=== PATIENT | male | born 1990 | race Caucasian/White ===

== ENCOUNTER 2017-03-20 23:36 | Emergency (ER) | payer SELFPAY ==
[2017-03-20 23:55] VITALS: RESP 18
--- NOTE | 2017-03-21 00:38 | ED PDOC ---
Arrival/HPI - General Chief Complaint: GI Problem Time Seen by Provider: 03/21/17 00:29 Historian: Patient - History of Present Illness Narrative History of Present Illness (Text): 03/21/17 00:36 Wiley Moe is a 26 year old male, with a history of G-6-PD deficiency, presents to the emergency department complaining of 2 day duration of nausea and vomiting. Patient also complains of posterior head pain, and generalized fatigue. Denies any fever, chills, dizziness, chest pain, shortness of breath, urinary symptoms, or any other complaints at this time. Time/Duration: Other (2 days ) Symptom Onset: Gradual Symptom Course: Unchanged Severity Level: Mild Activities at Onset: Light Past Medical History - Provider Review Nursing Documentation Reviewed: Yes - Psychiatric Hx Substance Use: No Family/Social History - Physician Review Nursing Documentation Reviewed: Yes Family/Social History: No Known Family HX Smoking Status: no Hx Alcohol Use: No Hx Substance Use: No Allergies/Home Meds Allergies/Adverse Reactions: Allergies Penicillins Allergy (Verified 03/20/17 23:55) RASH Review of Systems - Physician Review All systems were reviewed & negative as marked: Yes - Review of Systems Constitutional: Fatigue. absent: Fevers Respiratory: Normal. absent: SOB, Cough, Sputum Cardiovascular: absent: Chest Pain, Palpitations Gastrointestinal: Nausea, Vomiting. absent: Diarrhea Genitourinary Male: Normal Musculoskeletal: Normal Neurological: Headache. absent: Dizziness Physical Exam Vital Signs Reviewed: Yes Vital Signs Temp Pulse Resp BP Pulse Ox 03/21/17 04:26 53 L 18 112/74 100 03/21/17 03:35 98.0 F 53 L 18 116/67 100 03/20/17 23:51 98.8 F 72 18 120/83 98 Temperature: Afebrile Blood Pressure: Normal Pulse: Regular Respiratory Rate: Normal Appearance: Positive for: Well-Appearing, Non-Toxic, Comfortable Pain Distress: None Mental Status: Positive for: Alert and Oriented X 3 - Systems Exam Head: Present: Atraumatic, Normocephalic Pupils: Present: PERRL Conjunctiva: Present: Normal Mouth: Present: Moist Mucous Membranes Respiratory/Chest: Present: Clear to Auscultation, Good Air Exchange. No: Respiratory Distress, Accessory Muscle Use Cardiovascular: Present: Regular Rate and Rhythm, Normal S1, S2. No: Murmurs Abdomen: Present: Normal Bowel Sounds. No: Tenderness, Distention, Peritoneal Signs Upper Extremity: Present: Normal Inspection. No: Cyanosis, Edema Lower Extremity: Present: Normal Inspection. No: Edema Neurological: Present: GCS=15, CN II-XII Intact, Speech Normal, Motor Func Grossly Intact, Normal Sensory Function Skin: Present: Warm, Dry, Normal Color. No: Rashes Psychiatric: Present: Alert, Oriented x 3, Normal Insight, Normal Concentration Medical Decision Making ED Course and Treatment: 03/21/17 00:40 Impression: A 26 year old male who presents to the emergency department complaining of vomiting and nausea for 2 days. Also notes of flank pain and posterior head pain. Plan: -- CT Abd pelvis -- EKG -- Labs -- IV fluids -- Zofran -- Urinalysis -- Reassess and disposition Progress Notes: 03/21/17 02:15 EXAM: CT Abdomen and Pelvis Without Intravenous Contrast FINDINGS: Limitations: Lack of intravenous contrast. Motion artifact - mild. Lower thorax: No acute findings. ABDOMEN: Liver: Unremarkable. Gallbladder and bile ducts: No calcified stones. No ductal dilation. Pancreas: Unremarkable. No ductal dilation. Spleen: No splenomegaly. Adrenals: No mass. Kidneys and ureters: No renal calculi. No hydronephrosis. Stomach and bowel: Apparent mild mural/fold thickening of several jejunal loops. No associated inflammatory stranding. No obstruction. Appendix: No definite findings to suggest acute appendicitis. PELVIS: Bladder: Unremarkable. No stones. Reproductive: Unremarkable as visualized. ABDOMEN and PELVIS: Intraperitoneal space: No significant fluid collection. No free air. Bones/joints: No acute fracture. Soft tissues: Unremarkable. Vasculature: Unremarkable. No aneurysm. Lymph nodes: No pathologically enlarged lymph nodes. IMPRESSION: 1. Possible mild enteritis. Clinical correlation is needed. 2. Incidental/non-acute findings are described above. Dictated and Authenticated by: David Kaminski MD 03/21/17 04:26 On re-evaluation, patient feels better and is in no acute distress. I have discussed the results and plan with the patient, who expresses understanding. Patient in agreement with plan to be discharged home. Patient is stable for discharge. Patient was instructed to follow up with physician or return if symptoms worsen or new concerning symptoms arise. - Lab Interpretations Lab Results: 03/21/17 00:40 03/21/17 00:40 Lab Results 03/21/17 00:40: Urine Color Yellow, Urine Appearance Clear, Urine pH 6.5, Ur Specific [place] 1.015, Urine Protein Negative, Urine Glucose (UA) Negative, Urine Ketones Negative, Urine Blood Negative, Urine Nitrate Negative, Urine Bilirubin Negative, Urine Urobilinogen 1.0 H, Ur Leukocyte Esterase Negative 03/21/17 00:40: Sodium 139, Potassium 3.2 L, Chloride 102, Carbon Dioxide 26, Anion Gap 14, BUN 8, Creatinine 0.8, Est GFR ( Amer) > 60, Est GFR (Non- Af Amer) > 60, Random Glucose 82, Calcium 9.4, Total Bilirubin 0.9, AST 24, ALT 29, Alkaline Phosphatase 57, Troponin I < 0.01, Total Protein 7.6, Albumin 4.5, Globulin 3.1, Albumin/Globulin Ratio 1.5 03/21/17 00:40: WBC 6.1, RBC 4.44, Hgb 12.4 L, Hct 37.6 L, MCV 84.7, MCH 27.9, MCHC 33.0, RDW 12.7, Plt Count 199, MPV 10.0, Gran % 46.3 L, Lymph % (Auto) 41.1 H, [place] % (Auto) 8.9 H, Eos % (Auto) 3.4, Baso % (Auto) 0.3, Gran # 2.82, Lymph # 2.5, [place] # 0.5, Eos # 0.2, Baso # 0.02 I have reviewed the lab results: Yes - RAD Interpretation Radiology Orders: 03/21/17 00:36 ABD & PELVIS W/O PO OR IV CONT [CT] Stat Transportation Consultant: Radiologist - Medication Orders Current Medication Orders: Discontinued Medications Sodium Chloride (Sodium Chloride 0.9%) 1,000 mls @ 80 mls/hr IV .[id number] Last Admin: 03/21/17 02:49 Dose: 80 mls/hr Ondansetron HCl (Zofran Inj) 4 mg IVP STAT STA Stop: 03/21/17 00:37 Last Admin: 03/21/17 00:53 Dose: 4 mg - Scribe Statement The provider has reviewed the documentation as recorded by the Dc Gee Provider Attestation: Provider Scribe Attestation: All medical record entries made by the Scribe were at my direction and personally dictated by me. I have reviewed the chart and agree that the record accurately reflects my personal performance of the history, physical exam, medical decision making, and the department course for this patient. I have also personally directed, reviewed, and agree with the discharge instructions and disposition. Disposition/Present on Arrival - Present on Arrival Any Indicators Present on Arrival: No History of DVT/PE: No History of Uncontrolled Diabetes: No Urinary Catheter: No History of Decub. Ulcer: No History Surgical Site Infection Following: None - Disposition Have Diagnosis and Disposition been Completed?: Yes Diagnosis: Enteritis Disposition: HOME/ ROUTINE Disposition Time: 02:50 Condition: GOOD Discharge Instructions (ExitCare): Enteritis (ED) Prescriptions: Ondansetron [Zofran Odt] 8 mg PO TID PRN #10 odt PRN Reason: Nausea/Vomiting
[2017-03-21] MEDS: Sodium Chloride 0.9% 1,000 ML IV SCH ×2 (00:53→02:49)
[2017-03-21 00:59] LABS: BASO # 0.02 K/mm3 (0.0-2.0); BASO % 0.3 % (0.0-3.0); EOS # 0.2 (0.0-0.7); EOS % 3.4 % (1.5-5.0); GRAN # 2.82 (1.4-6.5); GRAN % 46.3 % (50.0-68.0); HEMOGLOBIN 12.4 gm/dL (14.0-18.0); LYMPH # 2.5 (1.2-3.4); LYMPH % 41.1 % (22.0-35.0); MEAN CELL VOLUME 84.7 fL (80.0-105.0); MEAN CORPUSCULAR HEMOGLOBIN 27.9 pg (25.0-35.0); MONO # 0.5 (0.1-0.6); MONO % 8.9 % (1.0-6.0); PLATELET COUNT 199 10^3/uL (120.0-450.0); RBC 4.44 10^6/uL (3.5-6.1); RED CELL DISTRIBUTION WIDTH 12.7 % (11.5-14.5); WHITE BLOOD COUNT 6.1 10^3/ul (4.5-11.0)
[2017-03-21 01:04] LABS: ALB/GLOB RATIO 1.5 (1.1-1.8); ALBUMIN 4.5 g/dL (3.0-4.8); ALT/SGPT 29 U/L (7-56); AST/SGOT 24 U/L (15-59); BLOOD UREA NITROGEN 8 mg/dL (7-21); CALCIUM 9.4 mg/dL (8.4-10.5); GFR AFRICAN-AMERICAN > 60; GFR NON-AFRICAN AMERICAN > 60
[2017-03-21 01:31] LABS: TROPONIN I < 0.01 ng/mL
[2017-03-21 02:10] LABS: PH,URINE 6.5 (4.7-8.0); URINE BILIRUBIN NEGATIVE (NEGATIVE); URINE BLOOD NEGATIVE (NEGATIVE); URINE GLUCOSE (UA) NEGATIVE (NEGATIVE); URINE LEUKOCYTE ESTERASE NEGATIVE Leu/uL (NEGATIVE); URINE NITRATE NEGATIVE (NEGATIVE); URINE PROTEIN NEGATIVE mg/dL (<30 mg/dL)
[2017-03-21 02:11] LABS: URINE APPEARANCE CLEAR (CLEAR); URINE COLOR YELLOW (YELLOW)
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
[2017-03-21 03:37] VITALS: PULSE 53; TEMP 98; O2SAT 100
[2017-03-21 04:27] VITALS: BP 112/74
== END 2017-03-21 04:25 | disposition home or self-care (01) ==
LOC: ED 23:36
DX: K52.9 Noninfective gastroenteritis and colitis, unspecified (principal)
CPT/HCPCS: 74176; 80053; 81003; 84484; 85025; 96361; 96374; 99284; J2405; J7040

== ENCOUNTER 2017-04-07 01:46 | Emergency (ER) | payer SELFPAY ==
[2017-04-07 01:48] VITALS: BMI 17.1
[2017-04-07 01:55] VITALS: RESP 18; TEMP 98.1
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
[2017-04-07 06:58] VITALS: BP 121/63; PULSE 82; O2SAT 97
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
== END 2017-04-07 06:59 | disposition home or self-care (01) ==
LOC: ED 01:46
DX: R51 Headache (principal)
CPT/HCPCS: 70450; 71020; 96372; 99283; J1885

== ENCOUNTER 2017-10-22 03:39 | Emergency (ER) | payer OTHER ==
[2017-10-22 04:05] VITALS: BMI 18.6
[2017-10-22 04:18] VITALS: BP 113/75; PULSE 81; RESP 16; TEMP 97.3; O2SAT 100
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
[2017-10-22 05:06] LABS: BASO # 0.03 K/mm3 (0.0-2.0); BASO % 0.5 % (0.0-3.0); EOS # 0.4 (0.0-0.7); EOS % 6.4 % (1.5-5.0); GRAN # 2.97 (1.4-6.5); GRAN % 49.2 % (50.0-68.0); HEMOGLOBIN 12.8 g/dL (14.0-18.0); LYMPH # 2.2 (1.2-3.4); MEAN CELL VOLUME 86.4 fl (80.0-105.0); MEAN CORPUSCULAR HEMOGLOBIN 27.6 pg (25.0-35.0); MEAN CORPUSCULAR HGB CONC 31.9 g/dl (31.0-37.0); MEAN PLATELET VOLUME 10.6 fl (7.0-11.0); MONO # 0.4 (0.1-0.6); MONO % 6.9 % (1.0-6.0); RBC 4.64 10^6/uL (3.5-6.1); RED CELL DISTRIBUTION WIDTH 13.4 % (11.5-14.5); WHITE BLOOD COUNT 6.1 10^3/ul (4.5-11.0)
[2017-10-22 05:10] LABS: ALB/GLOB RATIO 1.4 (1.1-1.8); ALBUMIN 4.4 g/dL (3.0-4.8); ALT/SGPT 21 U/L (7-56); AST/SGOT 31 U/L (17-59); BILIRUBIN,DIRECT 0.3 mg/dL (0.0-0.4); BLOOD UREA NITROGEN 13 mg/dL (7-21); CALCIUM 9.5 mg/dL (8.4-10.5); GFR AFRICAN-AMERICAN > 60; GFR NON-AFRICAN AMERICAN > 60; MAGNESIUM 2.3 mg/dL (1.7-2.2)
--- NOTE | 2017-10-22 21:35 | CARD ---
APPROVED REPORT EKG Measurement Heart [id number] <Conclusion> Normal sinus rhythm Biatrial enlargement Abnormal ECG
== END 2017-10-22 05:37 | disposition home or self-care (01) ==
LOC: ED 03:39
DX: K29.20 Alcoholic gastritis without bleeding (principal); D55.0 Anemia due to glucose-6-phosphate dehydrogenase [G6PD] deficiency

== ENCOUNTER 2017-11-27 17:11 | Emergency (ER) | payer OTHER ==
[2017-11-27 17:25] VITALS: BMI 17.4
[2017-11-27 17:27] VITALS: RESP 18; TEMP 98.5
--- NOTE | 2017-11-27 18:01 | ED PDOC ---
Arrival/HPI - General Chief Complaint: Abdominal Pain Time Seen by Provider: 11/27/17 17:44 Historian: Patient - History of Present Illness Narrative History of Present Illness (Text): 11/27/17 17:54 Pt is a 27 year old male with G6PD def. and gastritis, who presents to the ED with coughing and vomiting blood 3 times today since this morning. Pt says that he started to cough up a streaks of blood and had associated epigastric pain; to relieve this pain, he forced himself to throw up which produced approx 3 cups of bright red blood. He has not eaten since this morning but has been able to drink water. Admits to eating a lot of spicy foods and alcohol on occasion despite being told not to previously. Does not have a PMD as he is an immigrant and unemployed. Denies chest pain, shortness of breath, back pain, ZHAO, fever, chills, rectal bleeding or change in stool, or any other complaints. Time/Duration: 4-6 hours Symptom Onset: Sudden Symptom Course: Unchanged Quality: Pressure Severity Level: 1 Activities at Onset: Rest Context: Work Past Medical History - Provider Review Nursing Documentation Reviewed: Yes - Travel History Have you recently traveled outside [place] w/in the past 3 mons?: No - Infectious Disease Hx of Infectious Diseases: None - Cardiac Hx Cardiac Disorders: No - Pulmonary Hx Respiratory Disorders: No - Neurological Hx Neurological Disorder: No - HEENT Hx HEENT Disorder: No - Renal Hx Renal Disorder: No - Endocrine/Metabolic Hx Endocrine Disorders: No - Hematological/Oncological Other/Comment: g6PD deficiency - Integumentary Hx Dermatological Disorder: No - Musculoskeletal/Rheumatological Hx Musculoskeletal Disorders: No - Gastrointestinal Hx Gastrointestinal Disorders: No - Genitourinary/Gynecological Hx Genitourinary Disorders: No - Psychiatric Hx Psychophysiologic Disorder: No Hx Substance Use: No - Anesthesia Hx Anesthesia: Yes Family/Social History - Physician Review Nursing Documentation Reviewed: Yes Family/Social History: Unknown Family HX Smoking Status: Never Smoked Hx Alcohol Use: No Hx Substance Use: No Allergies/Home Meds Allergies/Adverse Reactions: Allergies Penicillins Allergy (Verified 11/27/17 17:25) RASH Review of Systems - Review of Systems Constitutional: Normal Eyes: Normal ENT: Normal Respiratory: Normal, Cough (w blood) Cardiovascular: Normal Gastrointestinal: Abdominal Pain (epigastric), Vomiting (3 cups earlier today) Genitourinary Male: Normal Musculoskeletal: Normal Skin: Normal Neurological: Normal Endocrine: Normal Hemo/Lymphatic: Normal Psychiatric: Normal Physical Exam Vital Signs Reviewed: Yes Vital Signs Temp Pulse Resp BP Pulse Ox 11/27/17 22:49 75 18 118/80 98 11/27/17 17:27 98.5 F 76 18 116/78 100 11/27/17 17:26 98.5 F 73 18 116/78 98 Temperature: Afebrile Blood Pressure: Normal Pulse: Regular Respiratory Rate: Normal Appearance: Positive for: Well-Appearing, Non-Toxic, Comfortable Pain Distress: None Mental Status: Positive for: Alert and Oriented X 3 - Systems Exam Head: Present: Atraumatic, Normocephalic Pupils: Present: PERRL Extroacular Muscles: Present: EOMI Conjunctiva: Present: Normal Mouth: Present: Moist Mucous Membranes Neck: Present: Normal Range of Motion Respiratory/Chest: Present: Clear to Auscultation, Good Air Exchange. No: Respiratory Distress, Accessory Muscle Use Cardiovascular: Present: Regular Rate and Rhythm, Normal S1, S2. No: Murmurs Abdomen: Present: Normal Bowel Sounds. No: Tenderness, Distention, Peritoneal Signs, Rebound, Guarding, McBurney's Point Tender, Rovsing's Sign Present, Hernias, Feeding Tubes, Ostomy Tubes, Mass/Organomegaly, Scars, Other Back: Present: Normal Inspection Upper Extremity: Present: Normal Inspection. No: Cyanosis, Edema Lower Extremity: Present: Normal Inspection. No: Edema Neurological: Present: GCS=15, CN II-XII Intact, Speech Normal Skin: Present: Warm, Dry, Normal Color. No: Rashes Psychiatric: Present: Alert, Oriented x 3, Normal Insight, Normal Concentration Medical Decision Making ED Course and Treatment: 11/27/17 18:01 Impression Pt is a 27 year old male with G6PD def. and gastritis, who presents to the ed with coughing and vomiting up blood 3 times today since tis morning. On exam, no significant findings Ddx: Acute abdomen, pancreatitis, obstruction Plan GI work up CT w IV and PO contrast Progress note Labs WNL CT abd and pelvis discussed findings w pt; advised to have endoscopy down with GI specialist dispo home with Brisa for gastritis VSS on DC - Lab Interpretations Lab Results: 11/27/17 18:35 11/27/17 18:35 Lab Results 11/27/17 18:35: Urine Color Yellow, Urine Appearance Clear, Urine pH 6.0, Ur Specific [place] 1.025, Urine Protein Negative, Urine Glucose (UA) Negative, Urine Ketones Negative, Urine Blood Negative, Urine Nitrate Negative, Urine Bilirubin Negative, Urine Urobilinogen 0.2, Ur Leukocyte Esterase Negative 11/27/17 18:35: Sodium 140, Potassium 4.1, Chloride 102, Carbon Dioxide 26, Anion Gap 16, BUN 11, Creatinine 0.8, Est GFR ( Amer) > 60, Est GFR (Non- Af Amer) > 60, Random Glucose 77, Calcium 10.0, Total Bilirubin 0.9, AST 21, ALT 24, Alkaline Phosphatase 48, Lactate Dehydrogenase 285 L, Total Creatine Kinase 61, Troponin I < 0.01, Total Protein 7.9, Albumin 4.6, Globulin 3.3, Albumin/Globulin Ratio 1.4, Amylase 61, Lipase 26 11/27/17 18:35: PT 12.1, INR 1.06, APTT 29.4 11/27/17 18:35: WBC 4.5 D, RBC 4.98, Hgb 13.7 L, Hct 42.6, MCV 85.5, MCH 27.5, MCHC 32.2, RDW 13.6, Plt Count 222, MPV 10.5, Gran % 38.2 L, Lymph % (Auto) 44.6 H, Dickinson % (Auto) 8.9 H, Eos % (Auto) 7.6 H, Baso % (Auto) 0.7, Gran # 1.71 , Lymph # (Auto) 2.0, Dickinson # (Auto) 0.4, Eos # (Auto) 0.3, Baso # (Auto) 0.03 - RAD Interpretation Narrative RAD Interpretations (Text): 11/27/17 22:25 EXAM: CT Abdomen and Pelvis With Intravenous Contrast CLINICAL HISTORY: 27 years old, male; Pain; Abdominal pain; Generalized; Additional info: Hematemesis TECHNIQUE: Axial computed tomography images of the abdomen and pelvis with intravenous contrast. All CT scans at this facility use one or more dose reduction techniques, viz.: automated exposure control; ma/kV adjustment per patient size (including targeted exams where dose is matched to indication; i.e. head); or iterative reconstruction technique. Coronal and sagittal reformatted images were created and reviewed. CONTRAST: 100 mL of OMNI 350 administered intravenously. COMPARISON: CT - ABD PELVIS W/O PO OR IV CONT 2017-03-21 01:40 FINDINGS: Lower thorax: No acute findings. ABDOMEN: Liver: Unremarkable. No mass. Gallbladder and bile ducts: No calcified stones. No ductal dilation. Pancreas: No ductal dilation. No mass. Spleen: No splenomegaly. Adrenals: No mass. Kidneys and ureters: No mass. No hydronephrosis. Stomach and bowel: No definite mural thickening. No obstruction. Appendix: Normal caliber. No inflammation. PELVIS: Bladder: Borderline bladder wall thickening, 4-5 mm. Incomplete distention, limiting evaluation. Reproductive: Apparent mildly prominent enhancement of prostate gland and seminal vesicles. ABDOMEN and PELVIS: Intraperitoneal space: Trace free fluid within pelvis. No free air. Bones/joints: Schmorl's nodes at few levels. No acute fracture. Soft tissues: Unremarkable. Vasculature: Unremarkable. No aneurysm. Lymph nodes: No pathologically enlarged lymph nodes. IMPRESSION: 1. Mild cystitis vs underdistention. Correlate with urinalysis. 2. Apparent mildly prominent enhancement of prostate gland and seminal vesicles. Clinical correlation is needed. 3. Incidental/non-acute findings are described above. Thank you for allowing us to participate in the care of your patient Radiology Orders: 11/27/17 18:04 CHEST PORTABLE [RAD] Stat 11/27/17 18:05 ABD PELVIS PO & IV CONTRAST [CT] Stat - EKG Interpretation Interpreted by ED Physician: Yes (Sinus donna with a Rate 50) - Medication Orders Current Medication Orders: Discontinued Medications Famotidine (Pepcid) 20 mg IVP STAT STA Stop: 11/27/17 18:05 Last Admin: 11/27/17 18:26 Dose: 20 mg IVP Administration Document 11/27/17 18:26 OCS (Rec: 11/27/17 18:26 OCS [id number]) Charges for Administration # of IVP Administrations 1 Pantoprazole Sodium (Protonix Inj) 40 mg IVP STAT STA Stop: 11/27/17 18:05 Last Admin: 11/27/17 18:26 Dose: 40 mg IVP Administration Document 11/27/17 18:26 OCS (Rec: 11/27/17 18:26 OCS [id number]) Charges for Administration # of IVP Administrations 1 Disposition/Present on Arrival - Present on Arrival Any Indicators Present on Arrival: Yes History of DVT/PE: No History of Uncontrolled Diabetes: No Urinary Catheter: No History of Decub. Ulcer: No History Surgical Site Infection Following: None - Disposition Have Diagnosis and Disposition been Completed?: Yes Diagnosis: Gastritis Disposition: HOME/ ROUTINE Disposition Time: 22:29 Patient Plan: Discharge Condition: STABLE Discharge Instructions (ExitCare): Gastritis (DC) Additional Instructions: It is recommended that you follow up with a GI specialist to have an endoscopic exam top rule out an ulcer. If you have worsening of symptoms, return to the ED for evaluation. All the best in your care Prescriptions: Omeprazole 20 mg PO DAILY #10 capsule. Referrals: [facility], [Non-Staff] - Follow up with primary Rios Gu DO [Staff Provider] - Follow up with primary Forms: [facility] (Greek), WORK NOTE
[2017-11-27] MEDS ORDERED: Iohexol 240 (50 ml) ONE (18:13)
[2017-11-27 19:03] LABS: URINE BILIRUBIN NEGATIVE (NEGATIVE); URINE BLOOD NEGATIVE (NEGATIVE); URINE GLUCOSE (UA) NEGATIVE (NEGATIVE); URINE LEUKOCYTE ESTERASE NEGATIVE Leu/uL (NEGATIVE); URINE PROTEIN NEGATIVE mg/dL (<30 mg/dL); URINE UROBILINOGEN 0.2 E.U./dL (<1 E.U./dL)
[2017-11-27 19:06] LABS: BASO # 0.03 K/mm3 (0.0-2.0); BASO % 0.7 % (0.0-3.0); EOS # 0.3 (0.0-0.7); EOS % 7.6 % (1.5-5.0); GRAN # 1.71 (1.4-6.5); GRAN % 38.2 % (50.0-68.0); HEMOGLOBIN 13.7 g/dL (14.0-18.0); LYMPH % 44.6 % (22.0-35.0); MEAN CELL VOLUME 85.5 fl (80.0-105.0); MEAN CORPUSCULAR HEMOGLOBIN 27.5 pg (25.0-35.0); MEAN CORPUSCULAR HGB CONC 32.2 g/dl (31.0-37.0); MEAN PLATELET VOLUME 10.5 fl (7.0-11.0); MONO # 0.4 (0.1-0.6); MONO % 8.9 % (1.0-6.0); RBC 4.98 10^6/uL (3.5-6.1); RED CELL DISTRIBUTION WIDTH 13.6 % (11.5-14.5); URINE APPEARANCE CLEAR (CLEAR); URINE COLOR YELLOW (YELLOW); WHITE BLOOD COUNT 4.5 10^3/ul (4.5-11.0)
[2017-11-27 19:11] LABS: ALB/GLOB RATIO 1.4 (1.1-1.8); ALBUMIN 4.6 g/dL (3.0-4.8); ALT/SGPT 24 U/L (7-56); AMYLASE 61 U/L (35-125); AST/SGOT 21 U/L (17-59); BLOOD UREA NITROGEN 11 mg/dL (7-21); GFR AFRICAN-AMERICAN > 60; GFR NON-AFRICAN AMERICAN > 60; INR 1.06 (0.93-1.08); LIPASE 26 U/L (23-300); PARTIAL THROMBOPLASTIN TIME 29.4 Seconds (25.1-36.5); PROTHROMBIN TIME 12.1 SECONDS (9.4-12.5)
[2017-11-27 19:22] LABS: TROPONIN I < 0.01 ng/mL
--- NOTE | 2017-11-27 22:08 | CT ---
EXAM: CT Abdomen and Pelvis With Intravenous Contrast CLINICAL HISTORY: 27 years old, male; Pain; Abdominal pain; Generalized; Additional info: Hematemesis TECHNIQUE: Axial computed tomography images of the abdomen and pelvis with intravenous contrast. All CT scans at this facility use one or more dose reduction techniques, viz.: automated exposure control; ma/kV adjustment per patient size (including targeted exams where dose is matched to indication; i.e. head); or iterative reconstruction technique. Coronal and sagittal reformatted images were created and reviewed. CONTRAST: 100 mL of OMNI 350 administered intravenously. COMPARISON: CT - ABD PELVIS W/O PO OR IV CONT 2017-03-21 01:40 FINDINGS: Lower thorax: No acute findings. ABDOMEN: Liver: Unremarkable. No mass. Gallbladder and bile ducts: No calcified stones. No ductal dilation. Pancreas: No ductal dilation. No mass. Spleen: No splenomegaly. Adrenals: No mass. Kidneys and ureters: No mass. No hydronephrosis. Stomach and bowel: No definite mural thickening. No obstruction. Appendix: Normal caliber. No inflammation. PELVIS: Bladder: Borderline bladder wall thickening, 4-5 mm. Incomplete distention, limiting evaluation. Reproductive: Apparent mildly prominent enhancement of prostate gland and seminal vesicles. ABDOMEN and PELVIS: Intraperitoneal space: Trace free fluid within pelvis. No free air. Bones/joints: Schmorl's nodes at few levels. No acute fracture. Soft tissues: Unremarkable. Vasculature: Unremarkable. No aneurysm. Lymph nodes: No pathologically enlarged lymph nodes. IMPRESSION: 1. Mild cystitis vs underdistention. Correlate with urinalysis. 2. Apparent mildly prominent enhancement of prostate gland and seminal vesicles. Clinical correlation is needed. 3. Incidental/non-acute findings are described above.
[2017-11-27 22:50] VITALS: BP 118/80; PULSE 75; O2SAT 98
--- NOTE | 2017-11-28 09:21 | RAD ---
HISTORY: hemetemesis COMPARISON: 04/07/2017 FINDINGS: LUNGS: No active pulmonary disease. PLEURA: No significant pleural effusion identified, no pneumothorax apparent. CARDIOVASCULAR: Normal. OSSEOUS STRUCTURES: No significant abnormalities. VISUALIZED UPPER ABDOMEN: Normal. OTHER FINDINGS: None. IMPRESSION: No active disease.
--- NOTE | 2017-11-28 19:41 | CARD ---
APPROVED REPORT EKG Measurement Heart [id number] <Conclusion> Sinus bradycardia Early repolarization Otherwise normal ECG
== END 2017-11-27 22:50 | disposition home or self-care (01) ==
LOC: ED 17:11
DX: K29.70 Gastritis, unspecified, without bleeding (principal)
CPT/HCPCS: 71045; 74177; 80053; 81003; 82150; 82550; 83615; 83690; 84484; 85025; 85610; 85730; 93005; 96374; 96375; 99283; C9113; Q9966

== ENCOUNTER 2017-12-18 12:43 | Emergency (ER) | payer OTHER ==
[2017-12-18 13:52] VITALS: BP 106/68; PULSE 76; RESP 17; TEMP 97.7; O2SAT 98; BMI 21.2
[2017-12-18] MEDS ORDERED: Pantoprazole 40 mg Susp UD PO STA (15:48)
--- NOTE | 2017-12-18 16:22 | ED PDOC ---
Arrival/HPI - General Chief Complaint: GI Problem Time Seen by Provider: 12/18/17 15:46 Historian: Patient, Partner - History of Present Illness Narrative History of Present Illness (Text): 12/18/17 16:23 Pt is a 27 year old male with G6PD def. and gastritis, who presents to the ED with continued epigastric pain and recent hematemesis while at work yesterday. Pt reports that although he was evaluated last month and told to take medication and follow up with a specialist, he chose not to as he has no insurance to cover cost of Nexium and endoscopy. He is here now in hopes of receiving an endoscopic exam and medication to relieve this pain. He does not have a PMD as he is an immigrant and unemployed. Denies chest pain, shortness of breath, back pain, ZHAO, fever, chills, rectal bleeding or change in stool, or any other complaints. Pt also reports left-side chest pain associated with epigastric pain. Denies fever, nausea, diarrhea, shortness of breath, or any other complaints. Time/Duration: > month Symptom Onset: Gradual Symptom Course: Unchanged Quality: Burning Severity Level: 8, 9 Activities at Onset: Rest, Light, Eating Context: Work Past Medical History - Provider Review Nursing Documentation Reviewed: Yes - Travel History Have you recently traveled outside [place] w/in the past 3 mons?: No - Infectious Disease Hx of Infectious Diseases: None - Cardiac Hx Cardiac Disorders: No - Pulmonary Hx Respiratory Disorders: No - Neurological Hx Neurological Disorder: No - HEENT Hx HEENT Disorder: No - Renal Hx Renal Disorder: No - Endocrine/Metabolic Hx Endocrine Disorders: No - Hematological/Oncological Other/Comment: g6PD deficiency - Integumentary Hx Dermatological Disorder: No - Musculoskeletal/Rheumatological Hx Musculoskeletal Disorders: No - Gastrointestinal Hx Gastrointestinal Disorders: Yes Hx Vomiting: Yes - Genitourinary/Gynecological Hx Genitourinary Disorders: No - Psychiatric Hx Psychophysiologic Disorder: No Hx Substance Use: No - Anesthesia Hx Anesthesia: Yes Family/Social History - Physician Review Nursing Documentation Reviewed: Yes Family/Social History: Unknown Family HX Smoking Status: Never Smoked Hx Alcohol Use: No Hx Substance Use: No Allergies/Home Meds Allergies/Adverse Reactions: Allergies peanut Allergy (Verified 12/18/17 13:48) ANAPHYLAXIS Penicillins Allergy (Verified 12/18/17 13:48) RASH Sulfa (Sulfonamide Antibiotics) Allergy (Verified 12/18/17 13:48) ANAPHYLAXIS Review of Systems - Review of Systems Constitutional: Normal Eyes: Normal ENT: Normal Respiratory: Normal Cardiovascular: Normal Gastrointestinal: Normal, Appetite Changes, Hematemesis Genitourinary Male: Normal Musculoskeletal: Normal Skin: Normal Neurological: Normal Endocrine: Normal Hemo/Lymphatic: Normal Psychiatric: Normal Physical Exam Vital Signs Reviewed: Yes Vital Signs Temp Pulse Resp BP Pulse Ox 12/18/17 13:48 97.7 F 76 17 106/68 98 Temperature: Afebrile Blood Pressure: Normal Pulse: Regular Respiratory Rate: Normal Appearance: Positive for: Well-Appearing, Non-Toxic, Comfortable Pain Distress: None Mental Status: Positive for: Alert and Oriented X 3 - Systems Exam Head: Present: Atraumatic, Normocephalic Pupils: Present: PERRL Extroacular Muscles: Present: EOMI Conjunctiva: Present: Normal Mouth: Present: Moist Mucous Membranes Neck: Present: Normal Range of Motion Respiratory/Chest: Present: Clear to Auscultation, Good Air Exchange. No: Respiratory Distress, Accessory Muscle Use Cardiovascular: Present: Regular Rate and Rhythm, Normal S1, S2. No: Murmurs Abdomen: Present: Tenderness (epigastric and left chest ), Normal Bowel Sounds. No: Distention, Peritoneal Signs, Rebound, Guarding, McBurney's Point Tender, Rovsing's Sign Present Back: Present: Normal Inspection Upper Extremity: Present: Normal Inspection. No: Cyanosis, Edema Lower Extremity: Present: Normal Inspection. No: Edema Neurological: Present: GCS=15, CN II-XII Intact, Speech Normal Skin: Present: Warm, Dry, Normal Color. No: Rashes Psychiatric: Present: Alert, Oriented x 3, Normal Insight, Normal Concentration Medical Decision Making ED Course and Treatment: 12/18/17 16:34 Impression Pt is a 27 year old male with G6PD def. and gastritis, who presents to the ED with continued epigastric pain and recent hematemesis while at work yesterday. . Plan ecg, labs ppi stat Progress Note 12/18/17 17:19 ECG: Normal Sinus rhythm; labs wnl Discussed results with pt and advised to take PPI along with Tylenol for pain Avoidance of NSAIDs and spicy food recommended F/U with GI specialist for a endoscopic exam [facility] contacted for pt and saw pt at bedside - Lab Interpretations Lab Results: 12/18/17 16:21 12/18/17 16:21 Lab Results 12/18/17 16:21: Sodium 140, Potassium 4.5, Chloride 103, Carbon Dioxide 28, Anion Gap 14, BUN 16, Creatinine 0.8, Est GFR ( Amer) > 60, Est GFR (Non- Af Amer) > 60, Random Glucose 90, Calcium 9.5, Total Bilirubin 0.4, AST 22, ALT 24, Alkaline Phosphatase 56, Total Protein 7.5, Albumin 4.5, Globulin 3.0, Albumin/Globulin Ratio 1.5 12/18/17 16:21: WBC 4.8, RBC 4.51, Hgb 12.2 L, Hct 38.8 L, MCV 86.0, MCH 27.1, MCHC 31.4, RDW 13.6, Plt Count 236, MPV 10.6 I have reviewed the lab results: Yes Interpretation: No sign. chg./baseline - EKG Interpretation Interpreted by ED Physician: Yes (NSR, Rate 65 bpm) - Medication Orders Current Medication Orders: Discontinued Medications Pantoprazole Sodium (Protonix Susp) 40 mg PO STAT STA Stop: 12/18/17 15:49 Last Admin: 12/18/17 16:15 Dose: 40 mg Disposition/Present on Arrival - Present on Arrival Any Indicators Present on Arrival: Yes History of DVT/PE: No History of Uncontrolled Diabetes: No Urinary Catheter: No History of Decub. Ulcer: No History Surgical Site Infection Following: None - Disposition Have Diagnosis and Disposition been Completed?: Yes Diagnosis: Gastritis, Noncompliance Disposition: HOME/ ROUTINE Disposition Time: 17:10 Patient Plan: Discharge Condition: GOOD Discharge Instructions (ExitCare): Peptic Ulcers (DC) Additional Instructions: Jw Jama recommend that you take the medication that was prescribed to alleviate your esophageal irritation and bleeding. You should see a grinder machine setter in the next week to have an endoscopic exam. Return to the ER if you start to vomit large amounts of blood. Prescriptions: Omeprazole 20 mg PO Q12 5 Days #10 tablet. Referrals: PCP,NO [Primary Care Provider] - Follow up with primary Forms: [facility] (Kyrgyz), WORK NOTE
[2017-12-18 16:40] LABS: HEMOGLOBIN 12.2 g/dL (14.0-18.0); MEAN CORPUSCULAR HEMOGLOBIN 27.1 pg (25.0-35.0); MEAN CORPUSCULAR HGB CONC 31.4 g/dl (31.0-37.0); MEAN PLATELET VOLUME 10.6 fl (7.0-11.0); RBC 4.51 10^6/uL (3.5-6.1); RED CELL DISTRIBUTION WIDTH 13.6 % (11.5-14.5); WHITE BLOOD COUNT 4.8 10^3/ul (4.5-11.0)
[2017-12-18 17:04] LABS: ALB/GLOB RATIO 1.5 (1.1-1.8); ALBUMIN 4.5 g/dL (3.0-4.8); ALT/SGPT 24 U/L (7-56); AST/SGOT 22 U/L (17-59); BLOOD UREA NITROGEN 16 mg/dL (7-21); CALCIUM 9.5 mg/dL (8.4-10.5); GFR AFRICAN-AMERICAN > 60; GFR NON-AFRICAN AMERICAN > 60
--- NOTE | 2017-12-18 21:21 | CARD ---
APPROVED REPORT EKG Measurement Heart [id number] <Conclusion> Normal sinus rhythm Early repolarization Normal ECG
== END 2017-12-18 19:02 | disposition home or self-care (01) ==
LOC: ED 12:43
DX: K29.70 Gastritis, unspecified, without bleeding (principal)

== ENCOUNTER 2018-11-06 13:08 | Inpatient (IN) | payer OTHER ==
[2018-11-06 13:08] VITALS: BMI 21.2
[2018-11-06] MEDS ORDERED: Alum-Mag Hydrox-Simethicone Susp (30 mL) PO STA (14:13)
[2018-11-06] MEDS ORDERED: Sodium Chloride 0.9% 1,000 ML IV STA (14:13)
--- NOTE | 2018-11-06 14:18 | ED PDOC ---
Arrival/HPI - General Chief Complaint: GI Problem Time Seen by Provider: 11/06/18 13:45 Historian: Patient - History of Present Illness Narrative History of Present Illness (Text): 11/06/18 14:14 28 year old male, whose past medical history includes G6PD def. and gastritis, who presents to the [facility] department complaining of vomiting blood for the pas year. Patient states his symptom began a year ago, then became more olimpia quently this month, and had his latest episode this morning. He notes associated sharp abdominal pain. Patient recently got insurance hence why he is coming to the emergency department for further evaluation. He denies fevers, chills, headache, dizziness, chest pain, shortness of breath, dyspnea on exertion, cough, diarrhea, back pain, neck pain, or any other complaint. Time/Duration: Other (1 year) Symptom Onset: Gradual Symptom Course: Worsening Activities at Onset: Light Context: Home Past Medical History - Provider Review Nursing Documentation Reviewed: Yes - Infectious Disease Hx of Infectious Diseases: None - Cardiac Hx Cardiac Disorders: No - Pulmonary Hx Respiratory Disorders: No - Neurological Hx Neurological Disorder: No - HEENT Hx HEENT Disorder: No - Renal Hx Renal Disorder: No - Endocrine/Metabolic Hx Endocrine Disorders: No - Hematological/Oncological Other/Comment: g6PD deficiency - Integumentary Hx Dermatological Disorder: No - Musculoskeletal/Rheumatological Hx Musculoskeletal Disorders: No - Gastrointestinal Hx Gastrointestinal Disorders: Yes Hx Vomiting: Yes - Genitourinary/Gynecological Hx Genitourinary Disorders: No - Psychiatric Hx Psychophysiologic Disorder: No Hx Substance Use: No - Anesthesia Hx Anesthesia: Yes Hx Anesthesia Reactions: No Family/Social History - Physician Review Nursing Documentation Reviewed: Yes Family/Social History: No Known Family HX Smoking Status: Never Smoked Hx Alcohol Use: No Hx Substance Use: No Allergies/Home Meds Allergies/Adverse Reactions: Allergies peanut Allergy (Verified 11/06/18 13:40) ANAPHYLAXIS Penicillins Allergy (Verified 11/06/18 13:40) RASH Sulfa (Sulfonamide Antibiotics) Allergy (Verified 11/06/18 13:40) ANAPHYLAXIS Home Medications: Home Meds Medication Instructions Recorded Confirmed No Known Home Med 11/06/18 11/06/18 Review of Systems - Physician Review All systems were reviewed & negative as marked: Yes - Review of Systems Constitutional: absent: Fevers Cardiovascular: absent: Chest Pain Physical Exam - Physical Exam Narrative Physical Exam (Text): 11/06/18 14:18 Constitutional: No acute distress. Head: Normocephalic. Atraumatic. Eyes: PERRL. ENT: Moist mucous membranes. Neck: Supple. Cardiovascular: Regular rate. Chest: No tenderness. Respiratory: Clear to auscultation bilaterally. GI: Soft. Nontender. Nondistended. Back: No CVA tenderness. Musculoskeletal: No tenderness or swelling of extremities. Skin: No rash. Neurologic: Alert, no focal deficit. Vital Signs Reviewed: Yes Vital Signs Temp Pulse Resp BP Pulse Ox 11/06/18 13:37 98.4 F 78 16 103/62 99 Temperature: Afebrile Blood Pressure: Normal Pulse: Regular Respiratory Rate: Normal Appearance: Positive for: Well-Appearing, Non-Toxic, Comfortable Pain Distress: None Mental Status: Positive for: Alert and Oriented X 3 Medical Decision Making ED Course and Treatment: 11/06/18 14:18 Impression: 28 year old male, who presents to the emergency department complaining of vomiting blood. Plan: -- BBK -- Labs -- Chest X-ray -- Maalox -- Pepcid -- Protonix -- IV fluids -- Zofran -- Reassess and disposition Prior Visits: Notes and results from previous visits were reviewed. Progress Notes: 11/06/18 16:29 Chest X-ray reviewed by radiologist, shows no active disease. Dr. Barrera accepts patient to medical service. Resident paged. - Lab Interpretations I have reviewed the lab results: Yes - RAD Interpretation Radiology Orders: 11/06/18 14:13 CHEST TWO VIEWS (PA/LAT) [RAD] Stat Roving Teller: Radiologist - Scribe Statement The provider has reviewed the documentation as recorded by the Scribe Sanna Burgos Provider Scribe Attestation: All medical record entries made by the Scribe were at my direction and personally dictated by me. I have reviewed the chart and agree that the record accurately reflects my personal performance of the history, physical exam, medical decision making, and the department course for this patient. I have also personally directed, reviewed, and agree with the discharge instructions and disposition. Disposition/Present on Arrival - Present on Arrival Any Indicators Present on Arrival: No History of DVT/PE: No History of Uncontrolled Diabetes: No Urinary Catheter: No History of Decub. Ulcer: No History Surgical Site Infection Following: None - Disposition Have Diagnosis and Disposition been Completed?: Yes Diagnosis: Upper GI bleed Disposition: HOSPITALIZED Disposition Time: 15:38 Patient Plan: Admission Condition: FAIR Referrals: PCP,NO [Primary Care Provider] - Follow up with primary Forms: [employer] (Romansh)
[2018-11-06 14:46] LABS: BASO # 0.02 K/mm3 (0.0-2.0); BASO % 0.5 % (0.0-3.0); EOS # 0.3 (0.0-0.7); EOS % 7.7 % (1.5-5.0); HEMOGLOBIN 12.3 g/dL (14.0-18.0); LYMPH # 1.5 (1.2-3.4); LYMPH % 39.6 % (22.0-35.0); MEAN CELL VOLUME 85.2 fl (80.0-105.0); MEAN CORPUSCULAR HEMOGLOBIN 26.9 pg (25.0-35.0); MEAN CORPUSCULAR HGB CONC 31.5 g/dl (31.0-37.0); MONO # 0.4 (0.1-0.6); RBC 4.58 10^6/uL (3.5-6.1); RED CELL DISTRIBUTION WIDTH 13.6 % (11.5-14.5); WHITE BLOOD COUNT 3.9 10^3/uL (4.5-11.0)
[2018-11-06 15:09] LABS: ALB/GLOB RATIO 1.5 (1.1-1.8); ALBUMIN 4.7 g/dL (3.0-4.8); BLOOD UREA NITROGEN 14 mg/dL (7-21); CALCIUM 9.7 mg/dL (8.4-10.5); GFR NON-AFRICAN AMERICAN > 60
[2018-11-06 15:10] LABS: ALT/SGPT 13 U/L (7-56); AST/SGOT 21 U/L (17-59)
[2018-11-06 15:20] LABS: LIPASE 30 U/L (23-300)
--- NOTE | 2018-11-06 16:20 | RAD ---
Date of service: 11/06/2018 HISTORY: Vomiting, epigastric pain COMPARISON: 11/27/2017. TECHNIQUE: Chest PA and lateral FINDINGS: LUNGS: No active pulmonary disease. PLEURA: No significant pleural effusion identified. No pneumothorax apparent. CARDIOVASCULAR: No aortic atherosclerotic calcification present. Normal cardiac size. No pulmonary vascular congestion. OSSEOUS STRUCTURES: No significant abnormalities. VISUALIZED UPPER ABDOMEN: Normal. OTHER FINDINGS: None. IMPRESSION: No active disease. No significant interval change compared to the prior examination(s).
[2018-11-06 18:03] LABS: BARBITURATES, UR NEGATIVE (NEGATIVE); BENZODIAZEPINES, UR NEGATIVE (NEGATIVE); OPIATES, UR POSITIVE (NEGATIVE); PHENCYCLIDINE, UR NEGATIVE (NEGATIVE)
--- NOTE | 2018-11-06 18:27 | CP.PCM.HP ---
<Ray Bar - Last Filed: 11/06/18 19:58> History of Present Illness - History of Present Illness History of Present Illness: Ray Bar Internal Medicine Resident- H&P on Behalf of Dr. Barrera's Service Subjective CC: Vomiting Blood and blood in stool HPI: Patient is a 28 year old male with a past medical history of G6PD deficiency who presents to the emergency room for evaluation and treatment of vomiting blood and blood in stool. States that emesis started one year ago with no specific provoking event. He did not see a physician at that time. Frequency of blood in emesis has increased since onset. States over the past week he has experienced emesis daily with bright red blood. Also has been experiencing blood in stool over the past month. Denies fever, chills, dizziness, headache, SOB, overt abdominal pain, diarrhea, constipation, and urinary symptoms. 12 point ROS negative except as indicated in HPI Past Medical History: G6PD deficiency, self-diagnosed gastritis Past Surgical History: Ingrown hair removal Allergies: peanut, PCN, sulfa abx Social History: social ETOH use, currently smokes 5 cigarettes per day for the past 5 years, denies illicit drug use Family History: father- [place], DM, HTN; sister- [place]. P[place] Physical Examination: - Constitutional Appears: Non-toxic, No Acute Distress - Head Exam Head Exam: ATRAUMATIC, NORMAL INSPECTION, NORMOCEPHALIC - Eye Exam Eye Exam: EOMI - ENT Exam ENT Exam: Mucous Membranes Moist - Neck Exam Neck exam: Positive for: Full Rom, Normal Inspection - Respiratory Exam Respiratory Exam: NORMAL BREATHING PATTERN. absent: Accessory Muscle Use, Chest Wall Tenderness, Rales, Rhonchi, Wheezes - Cardiovascular Exam Cardiovascular Exam: REGULAR RHYTHM, RRR, +S1, +S2. absent: Bradycardia, Tachycardia, Irregular Rhythm, JVD, +S4 - GI/Abdominal Exam GI & Abdominal Exam: Normal Bowel Sounds, Soft. absent: Tenderness - Rectal Exam Rectal Exam: Deferred, importance of rectal exam thoroughly explained to patient however defers at this time - Extremities Exam Extremities exam: Negative for: joint swelling, pedal edema, tenderness - Neurological Exam Neurological exam: Awake, alert, Oriented x3, responds to verbal stimuli, follows commands, and moves extremities past midline CN II-XII Intact - Psychiatric Exam Psychiatric exam: Normal Affect, Normal Mood - Skin Skin Exam: Dry, Intact, Normal Color, Warm Assessment and Plan: Patient is a 28 year old male with a past medical history of G6PD deficiency who was admitted for evaluation and treatment of vomiting blood and blood in stool. GI Hemorrhage - NPO - protonix 40mg IV q12 - IVF NS @ 100cc/hr - H and H q6 - Type and cross 2 units on hold - FOBT - GI consulted (Dr. Yang)- appreciate recommendations Normocytic Anemia - likely secondary to hemorrhage - iron, TIBC, ferritin, soluble transferrin receptor, reticulocyte count, LDH, erythropoietin ordered and pending - vitamin B12, folate ordered and pending G6PD Deficiency - avoid sulfa drugs, yoselin beans, and other triggering factors Leukopenia - HIV ordered and pending Tobacco Abuse - patient counseled on dangers of tobacco use - smoking cessation advised Prophylaxis - DVT ppx- SCDs - GI ppx- protonix 40 iv q12 Patient case discussed with and plan approved by attending physician, Dr. Barrera. Present on Admission - Present on Admission Any Indicators Present on Admission: No Past Patient History - Infectious Disease Hx of Infectious Diseases: None - Past Social History Smoking Status: Never Smoked - CARDIAC Hx Cardiac Disorders: No - PULMONARY Hx Respiratory Disorders: No - NEUROLOGICAL Hx Neurological Disorder: No - HEENT Hx HEENT Problems: No - RENAL Hx Chronic Kidney Disease: No - ENDOCRINE/METABOLIC Hx Endocrine Disorders: No - HEMATOLOGICAL/ONCOLOGICAL Other/Comment: g6PD deficiency - INTEGUMENTARY Hx Dermatological Problems: No - MUSCULOSKELETAL/RHEUMATOLOGICAL Hx Musculoskeletal Disorders: No - GASTROINTESTINAL Hx Gastrointestinal Disorders: Yes Hx Vomiting: Yes - GENITOURINARY/GYNECOLOGICAL Hx Genitourinary Disorders: No - PSYCHIATRIC Hx Psychophysiologic Disorder: No Hx Substance Use: No - SURGICAL HISTORY Hx Surgeries: No - ANESTHESIA Hx Anesthesia: Yes Hx Anesthesia Reactions: No Meds Allergies/Adverse Reactions: Allergies Allergy/AdvReac Type Severity Reaction Status Date / Time peanut Allergy ANAPHYLAXIS Verified 11/06/18 13:40 Penicillins Allergy RASH Verified 11/06/18 13:40 Sulfa (Sulfonamide Allergy ANAPHYLAXIS Verified 11/06/18 13:40 Antibiotics) Results - Vital Signs Recent Vital Signs: Last Vital Signs Temp 98.4 F 11/06/18 13:37 Pulse 68 11/06/18 14:16 Resp 16 11/06/18 14:16 BP 108/68 11/06/18 14:16 Pulse Ox 100 11/06/18 14:16 - Labs Result Diagrams: 11/06/18 14:30 11/06/18 14:30 Labs: Laboratory Results - last 24 hr 11/06/18 11/06/18 11/06/18 14:30 14:30 14:30 WBC 3.9 L RBC 4.58 Hgb 12.3 L Hct 39.0 L MCV 85.2 MCH 26.9 MCHC 31.5 RDW 13.6 Plt Count 209 MPV 10.0 Neut % (Auto) 43.2 L Lymph % (Auto) 39.6 H [place] % (Auto) 9.0 H Eos % (Auto) 7.7 H Baso % (Auto) 0.5 Lymph # (Auto) 1.5 [place] # (Auto) 0.4 Eos # (Auto) 0.3 Baso # (Auto) 0.02 Absolute Neuts (auto) 1.68 Sodium 140 Potassium 4.2 Chloride 104 Carbon Dioxide 29 Anion Gap 11 BUN 14 Creatinine 0.7 L Est GFR ( Amer) > 60 Est GFR (Non-Af Amer) > 60 Random Glucose 90 Calcium 9.7 Total Bilirubin 0.4 AST 21 ALT 13 Alkaline Phosphatase 51 Total Protein 7.8 Albumin 4.7 Globulin 3.1 Albumin/Globulin Ratio 1.5 Lipase 30 Urine Opiates Screen Urine Methadone Screen Ur Barbiturates Screen Ur Phencyclidine Scrn Ur Amphetamines Screen U Benzodiazepines Scrn U Oth Cocaine Metabols U Cannabinoids Screen Alcohol, Quantitative Blood Type O POSITIVE Blood Type Confirm Antibody Screen Negative BBK History Checked No verified bt 11/06/18 11/06/18 11/06/18 14:50 16:50 17:12 WBC RBC Hgb Hct MCV MCH MCHC RDW Plt Count MPV Neut % (Auto) Lymph % (Auto) [place] % (Auto) Eos % (Auto) Baso % (Auto) Lymph # (Auto) [place] # (Auto) Eos # (Auto) Baso # (Auto) Absolute Neuts (auto) Sodium Potassium Chloride Carbon Dioxide Anion Gap BUN Creatinine Est GFR ( Amer) Est GFR (Non-Af Amer) Random Glucose Calcium Total Bilirubin AST ALT Alkaline Phosphatase Total Protein Albumin Globulin Albumin/Globulin Ratio Lipase Urine Opiates Screen Positive H Urine Methadone Screen Negative Ur Barbiturates Screen Negative Ur Phencyclidine Scrn Negative Ur Amphetamines Screen Negative U Benzodiazepines Scrn Negative U Oth Cocaine Metabols Negative U Cannabinoids Screen Negative Alcohol, Quantitative < 10 Blood Type Blood Type Confirm O POSITIVE Antibody Screen BBK History Checked <Emre Barrera U - Last Filed: 11/11/18 19:58> Results - Vital Signs Recent Vital Signs: Last Vital Signs Temp 98.1 F 11/08/18 12:00 Pulse 65 11/08/18 12:00 Resp 18 11/08/18 12:00 BP 102/66 11/08/18 12:00 Pulse Ox 99 11/07/18 10:23 - Labs Result Diagrams: 11/08/18 06:20 11/08/18 06:20 Attending/Attestation - Attestation I have personally seen and examined this patient.: Yes I have fully participated in the care of the patient.: Yes I have reviewed all pertinent clinical information: Yes Notes (Text): Please see/read my dictated notes.
[2018-11-06 19:17] LABS: INR 1.14; PROTHROMBIN TIME 12.6 SECONDS (9.4-12.5)
[2018-11-06] MEDS: Sodium Chloride 0.9% 1,000 ML IV SCH (19:19)
[2018-11-06 19:30] LABS: IRON 72 ug/dL (45-180)
[2018-11-06 19:49] LABS: % IRON SATURATION 24 % (20-55); TOTAL IRON BINDING CAPACITY 296 ug/dL (261-462)
[2018-11-06] MEDS ORDERED: Iohexol 350 MG/100 ML VIAL ONE (21:36)
[2018-11-06 23:50] LABS: HEMOGLOBIN 10.8 g/dL (14.0-18.0); MEAN CELL VOLUME 85.2 fl (80.0-105.0); MEAN CORPUSCULAR HEMOGLOBIN 26.6 pg (25.0-35.0); MEAN CORPUSCULAR HGB CONC 31.2 g/dl (31.0-37.0); MEAN PLATELET VOLUME 9.1 fl (7.0-11.0); RBC 4.06 10^6/uL (3.5-6.1); RED CELL DISTRIBUTION WIDTH 13.5 % (11.5-14.5); WHITE BLOOD COUNT 4.5 10^3/uL (4.5-11.0)
[2018-11-07 01:49] LABS: URINE BILIRUBIN NEGATIVE (NEGATIVE); URINE BLOOD NEGATIVE (NEGATIVE); URINE GLUCOSE (UA) NEGATIVE (NEGATIVE); URINE LEUKOCYTE ESTERASE NEGATIVE Leu/uL (NEGATIVE); URINE PROTEIN NEGATIVE mg/dL (<30 mg/dL); URINE UROBILINOGEN 0.2 E.U./dL (<1 E.U./dL)
[2018-11-07 01:50] LABS: URINE APPEARANCE CLEAR (CLEAR); URINE COLOR YELLOW (YELLOW)
[2018-11-07 05:54] LABS: HEMOGLOBIN 10.4 g/dL (14.0-18.0); MEAN CELL VOLUME 85.2 fl (80.0-105.0); MEAN CORPUSCULAR HEMOGLOBIN 26.6 pg (25.0-35.0); MEAN CORPUSCULAR HGB CONC 31.2 g/dl (31.0-37.0); MEAN PLATELET VOLUME 9.7 fl (7.0-11.0); RBC 3.91 10^6/uL (3.5-6.1); RED CELL DISTRIBUTION WIDTH 13.5 % (11.5-14.5); WHITE BLOOD COUNT 4.3 10^3/uL (4.5-11.0)
[2018-11-07 06:07] LABS: ALB/GLOB RATIO 1.3 (1.1-1.8); ALBUMIN 3.3 g/dL (3.0-4.8); ALT/SGPT 18 U/L (7-56); AST/SGOT 17 U/L (17-59); BILIRUBIN,DIRECT 0.2 mg/dL (0.0-0.4); BLOOD UREA NITROGEN 9 mg/dL (7-21); CALCIUM 8.5 mg/dL (8.4-10.5); GFR NON-AFRICAN AMERICAN > 60
[2018-11-07] MEDS: Sodium Chloride 0.9% 1,000 ML IV SCH (06:38)
[2018-11-07] MEDS ORDERED: Propofol 10 mg/ml Inj (20 ML) ONE (08:23)
[2018-11-07] MEDS ORDERED: Midazolam 2 MG/2 ML VIAL ONE (08:23)
--- NOTE | 2018-11-07 08:39 | CON ---
DATE OF CONSULTATION: 11/07/2018 GASTROENTEROLOGY CONSULTATION REQUESTING PHYSICIAN: Dr. Barrera. REASON FOR CONSULTATION: I have been asked to see this 28-year-old male with a history of G6PD deficiency, who comes to the hospital with increasing vomiting and hematemesis. The patient states that he started vomiting approximately 1 year ago. He started seeing blood in his vomit over a week ago. He has had some increase in the frequency of hematemesis and came to the hospital. He denies any abdominal pain, nausea, vomiting, fevers, or chills. He occasionally sees bright red blood per rectum. The patient also complains of some epigastric burning and heartburn. PAST MEDICAL HISTORY: Notable for G6PD deficiency. PAST SURGICAL HISTORY: Notable for removal of an ingrown hair follicle. SOCIAL HISTORY: He consumes alcohol on a social basis. He smokes up to a half pack of cigarettes per day. He denies illicit drug use. FAMILY HISTORY: Notable for father with [place] and diabetes. REVIEW OF SYSTEMS: Fourteen-point review of systems is notable for hematemesis, vomiting, and epigastric and substernal burning. MEDICATIONS AT HOME: None. PHYSICAL EXAMINATION: GENERAL: Thin asthenic male, lying in bed, in no acute distress. VITAL SIGNS: Revealed a temperature of 98.1, blood pressure 98/61, heart rate 56. HEENT: Reveals sclerae to be white. Conjunctivae pink. NECK: Supple. CHEST: Revealed lungs to be clear. HEART: Exam reveals a regular rate and rhythm. ABDOMEN: Soft, nontender. No mass. EXTREMITIES: Show no edema. LABORATORY DATA: Revealed hemoglobin of 10.4, white blood cell count of 4.3, platelet count of 157,000. Chemistries reveal a chloride of 111, BUN 9, creatinine 0.7. AST, ALT, and alk phos were all normal. CT scan of the abdomen and pelvis revealed fluid-filled duodenum and loops of jejunum with some mild mural thickening and mild pericholecystic fluid without evidence of gallstones. IMPRESSION: A 28-year-old male with chronic vomiting, recently with hematemesis. CT scan of the abdomen and pelvis reveals fluid-filled nonspecific mural thickening of the duodenum and jejunum. The patient may have an acute enteritis causing his recent exacerbation of vomiting. He may have a small mucosal tear in the stomach from chronic vomiting, rule out ulcer disease. RECOMMENDATIONS: 1. We will schedule the patient for an endoscopy this morning. 2. Continue PPI. 3. Follow serial hematocrits. Juan Yang MD
[2018-11-07] MEDS ORDERED: Sodium Chloride 0.9% 1,000 ML IV SCH (08:45)
[2018-11-07 09:44] VITALS: O2SAT 99
--- NOTE | 2018-11-07 10:12 | CT ---
Date of service: 11/06/2018 PROCEDURE: CT Abdomen and Pelvis with contrast HISTORY: Gi bleed COMPARISON: CT 11/27/2017 TECHNIQUE: Contrast dose: 97 cc of Omnipaque 350 Radiation dose: Total exam DLP = 237.05 mGy-cm. This CT exam was performed using one or more of the following dose reduction techniques: Automated exposure control, adjustment of the mA and/or kV according to patient size, and/or use of iterative reconstruction technique. FINDINGS: LOWER THORAX: Unremarkable. LIVER: Unremarkable. No gross lesion or ductal dilatation. GALLBLADDER AND BILE DUCTS: There is a small amount of pericholecystic fluid. There are no obvious stones. Ultrasound correlation is suggested PANCREAS: Unremarkable. No gross lesion or ductal dilatation. SPLEEN: Unremarkable. ADRENALS: Unremarkable. No mass. KIDNEYS AND URETERS: Unremarkable. No hydronephrosis. No solid mass. VASCULATURE: Unremarkable. No aortic aneurysm. No aortic atherosclerotic calcification or mural plaque present. BOWEL: Unremarkable. No obstruction. No gross mural thickening. APPENDIX: Normal appendix. PERITONEUM: Unremarkable. No free fluid. No free air. LYMPH NODES: Unremarkable. No enlarged lymph nodes. BLADDER: Unremarkable. REPRODUCTIVE: Unremarkable. BONES: No acute fracture. OTHER FINDINGS: The report concurs with the preliminary [facility] report IMPRESSION: There is a small amount of pericholecystic fluid. There are no obvious stones. Ultrasound correlation is suggested
--- NOTE | 2018-11-07 12:05 | PN ---
DATE: 11/07/2018 SUBJECTIVE: The patient is in room 268 bed one. Overnight nurse's notes were reviewed. There were no adverse events noted, documented, or notified. The patient was admitted through the emergency room yesterday with complaints of hematemesis and questionable blood streaks in the stool. PHYSICAL EXAMINATION: VITAL SIGNS: T-max 97.7, pulse 50, blood pressure 99/58,112/64. HEENT: Head examination normocephalic, atraumatic. HEENT examination shows pinkish pale conjunctivae. Anicteric sclerae, dry oral mucosa. No neck rigidity. CHEST: Kyphosis. LUNGS: Shows no audible crackle, rales or wheezing. CARDIOVASCULAR: S1, S2, regular rhythm. ABDOMEN: Soft. Positive bowel sounds. Questionable periumbilical and epigastric tenderness noted. No guarding. No rebound tenderness noted. GENITALIA: Male. RECTAL: Deferred. EXTREMITIES: Shows no pitting edema, no calf tenderness, no Homans' sign. NEUROLOGIC: The patient is alert, awake, responsive, is able to move upper and lower extremity without assistance. Gait examination is not tested. The patient is alert, awake, oriented x3. Cranial nerves II-XII intact. VASCULAR: Palpable pulses. DIAGNOSTICS: The patient's CBC is available from 11/07/2018, rest of the labs are pending. WBC 4.5, hemoglobin/hematocrit 10.8/34.6 platelets 160. The patient had a CT of the abdomen and pelvis with IV contrast. Preliminary report shows thickening of the duodenum and jejunum, questionable antritis with pericholecystic fluid without cholecystitis or cholelithiasis. The patient's other diagnostic data is pending. IMPRESSION AND PLAN: 1. Upper gastrointestinal bleeding with hematemesis. 2. Questionable lower gastrointestinal bleeding. 3. Leukopenia. 4. Anemia. 5. Pericholecystic fluid, etiology undetermined. 6. Questionable antritis with thickened duodenum and jejunal lining and mucosal thickening. 7. History of G6PD deficiency. 8. Questionable transient hypotension. PLAN: At this time, we are awaiting ultrasound of the abdomen which is pending. We are awaiting for further diagnostic lab data which has been ordered. GI evaluation pending. The patient's further management will be dependent upon the patient's clinical condition, hemodynamic status and as per the patient's response to therapeutic intervention as per the patient's diagnostic test results and as per recommendation by all the physicians involved the care of the patient. The patient has been updated, explained about his medical condition, need for further diagnostic therapeutic intervention, possible diagnosis and possible treatment options all discussed which may be modified and updated depending upon further recommendations which the patient acknowledged and understood. Dictated and electronically signed, not read. Emre Barrera MD MTDRickie
[2018-11-07 13:00] VITALS: RESP 18
[2018-11-07 13:04] LABS: HEPATITIS B SURFACE AG Negative (NEGATIVE)
[2018-11-07 13:06] LABS: HEMOGLOBIN 10.5 g/dL (14.0-18.0); MEAN CELL VOLUME 86.3 fl (80.0-105.0); MEAN CORPUSCULAR HEMOGLOBIN 26.6 pg (25.0-35.0); MEAN CORPUSCULAR HGB CONC 30.8 g/dl (31.0-37.0); MEAN PLATELET VOLUME 9.4 fl (7.0-11.0); RBC 3.95 10^6/uL (3.5-6.1); RED CELL DISTRIBUTION WIDTH 13.7 % (11.5-14.5); WHITE BLOOD COUNT 3.8 10^3/uL (4.5-11.0)
[2018-11-07 13:11] LABS: HEPATITIS A IGM NEGATIVE (NEGATIVE); HEPATITIS B CORE AB NEGATIVE (NEGATIVE)
[2018-11-07 13:22] LABS: HEPATITIS C ANTIBODY NEGATIVE (NEGATIVE)
[2018-11-07 13:56] LABS: FERRITIN 65.5 ng/mL
[2018-11-07 13:58] LABS: FOLATE 6.3 ng/mL
--- NOTE | 2018-11-07 17:21 | CARD ---
APPROVED REPORT Date of service: 11/06/2018 EKG Measurement Heart [id number] <Conclusion> Sinus bradycardia Early repolarization Otherwise normal ECG
[2018-11-07 20:13] LABS: HEMOGLOBIN 11.1 g/dL (14.0-18.0); MEAN CELL VOLUME 85.6 fl (80.0-105.0); MEAN CORPUSCULAR HEMOGLOBIN 26.6 pg (25.0-35.0); MEAN PLATELET VOLUME 10.1 fl (7.0-11.0); RBC 4.18 10^6/uL (3.5-6.1); RED CELL DISTRIBUTION WIDTH 13.7 % (11.5-14.5); WHITE BLOOD COUNT 4.8 10^3/uL (4.5-11.0)
[2018-11-08] MEDS ORDERED: Pantoprazole 40 mg EC Tab PO SCH (06:00)
[2018-11-08 06:56] LABS: BASO # 0.02 K/mm3 (0.0-2.0); BASO % 0.3 % (0.0-3.0); EOS # 0.3 (0.0-0.7); EOS % 4.9 % (1.5-5.0); HEMOGLOBIN 10.5 g/dL (14.0-18.0); LYMPH % 34.3 % (22.0-35.0); MEAN CELL VOLUME 85.6 fl (80.0-105.0); MEAN CORPUSCULAR HEMOGLOBIN 26.1 pg (25.0-35.0); MEAN CORPUSCULAR HGB CONC 30.5 g/dl (31.0-37.0); MEAN PLATELET VOLUME 10.5 fl (7.0-11.0); MONO # 0.4 (0.1-0.6); MONO % 7.7 % (1.0-6.0); RBC 4.02 10^6/uL (3.5-6.1); RED CELL DISTRIBUTION WIDTH 13.4 % (11.5-14.5); WHITE BLOOD COUNT 5.7 10^3/uL (4.5-11.0)
--- NOTE | 2018-11-08 07:47 | CP.PCM.CON ---
History of Present Illness - History of Present Illness History of Present Illness: Bradley Goyal, PGY-[address] An, covered by Dr. Interiano CC: Hematochezia HPI: Mr. Moe is a 28 year old male with a past medical history of G6PD deficiency who presented with complaints of vomiting blood and finding blood in stool. Patient states that emesis started one year ago with no specific provoking event but has worsened over last week with near-daily episodes. Patient has not followed with any physician and has never been scoped before. Patient states over the past week, he has experienced emesis daily with bright red blood. Also has been experiencing dark stool with streaksof blood over the past month. Patient reports associated epigastric pain with occasional feelings of reflux, but denies fever, chills, dizziness, headache, SOB, intense abdominal pain, diarrhea, constipation, and urinary symptoms. 12 point ROS negative except as indicated in HPI Past Medical History: G6PD deficiency, self-diagnosed gastritis Past Surgical History: Ingrown hair removal Allergies: peanut, PCN, sulfa abx Social History: social ETOH use, currently smokes 5 cigarettes per day for the past 5 years, denies illicit drug use Family History: father- [place], DM, HTN; sister- [place] Meds: Denies Review of Systems - Review of Systems Review of Systems: 12 point ROS completed and negative except as described in HPI. Past Patient History - Infectious Disease Hx of Infectious Diseases: None - Past Social History Smoking Status: Current Some Days Smoker - CARDIAC Hx Cardiac Disorders: No - PULMONARY Hx Respiratory Disorders: No - NEUROLOGICAL Hx Neurological Disorder: No - HEENT Hx HEENT Problems: No (glasses) - RENAL Hx Chronic Kidney Disease: No - ENDOCRINE/METABOLIC Hx Endocrine Disorders: No - HEMATOLOGICAL/ONCOLOGICAL Hx Blood Transfusions: No - INTEGUMENTARY Hx Dermatological Problems: No - MUSCULOSKELETAL/RHEUMATOLOGICAL Hx Falls: No - GASTROINTESTINAL Hx Gastrointestinal Disorders: Yes (hemetemesis, vomiting, gastritis) - GENITOURINARY/GYNECOLOGICAL Hx Genitourinary Disorders: No - PSYCHIATRIC Hx Psychophysiologic Disorder: No Hx Substance Use: No - SURGICAL HISTORY Hx Surgeries: (ingrown hair removal,BACK SURGERY) - ANESTHESIA Hx Anesthesia Reactions: No Hx Malignant Hyperthermia: No Meds Home Medications: Home Medication List Medication Instructions Recorded Confirmed Type Nicotine 14 mg/24 hr [Nicoderm CQ] 1 patch TD 2200 #30 patch 11/08/18 Rx Pantoprazole [Protonix EC Tab] 40 mg PO BID #60 ect 11/08/18 Rx Allergies/Adverse Reactions: Allergies Allergy/AdvReac Type Severity Reaction Status Date / Time peanut Allergy ANAPHYLAXIS Verified 11/06/18 13:40 Penicillins Allergy RASH Verified 11/06/18 13:40 Sulfa (Sulfonamide Allergy ANAPHYLAXIS Verified 11/06/18 13:40 Antibiotics) - Medications Medications: Current Medications Acetaminophen (Tylenol 325mg Tab) 650 mg PO Q6 PRN PRN Reason: TEMP>=99.5F Acetaminophen (Tylenol 650 Mg Supp) 650 mg RC Q6H PRN PRN Reason: TEMP>=99.5F Sodium Chloride (Sodium Chloride 0.9%) 1,000 mls @ 100 mls/hr IV .Q10H [facility] Last Admin: 11/07/18 06:38 Dose: 100 mls/hr Nicotine (Nicoderm Cq) 1 patch TD 2200 [facility] Last Admin: 11/07/18 22:03 Dose: 1 patch Ondansetron HCl (Zofran Inj) 4 mg IVP Q4 PRN PRN Reason: Nausea/Vomiting Pantoprazole Sodium (Protonix Ec Tab) 40 mg PO 0600 [facility] Last Admin: 11/08/18 06:05 Dose: 40 mg Physical Exam - Additional Findings Additional findings: - Constitutional Appears: Non-toxic, No Acute Distress - Head Exam Head Exam: ATRAUMATIC, NORMAL INSPECTION, NORMOCEPHALIC - Eye Exam Eye Exam: EOMI, nonicteric sclera - ENT Exam ENT Exam: Mucous Membranes Moist - Neck Exam Neck exam: Positive for: Full Rom, Normal Inspection - Respiratory Exam Respiratory Exam: NORMAL BREATHING PATTERN. absent: Accessory Muscle Use, Chest Wall Tenderness, Rales, Rhonchi, Wheezes - Cardiovascular Exam Cardiovascular Exam: REGULAR RHYTHM, RRR, +S1, +S2. absent: Bradycardia, Tachycardia, Irregular Rhythm, JVD, +S4 - GI/Abdominal Exam GI & Abdominal Exam: Normal Bowel Sounds, Soft. absent: Tenderness - Rectal Exam Rectal Exam: Deferred at this time - Extremities Exam Extremities exam: Negative for: joint swelling, pedal edema, tenderness - Neurological Exam Neurological exam: Awake, alert, Oriented x3, responds to verbal stimuli, follows commands, and moves extremities past midline CN II-XII Intact - Psychiatric Exam Psychiatric exam: Normal Affect, Normal Mood - Skin Skin Exam: Dry, Intact, Normal Color, Warm Results - Vital Signs Recent Vital Signs: Last Vital Signs Temp 98.2 F 11/08/18 06:00 Pulse 91 H 11/08/18 06:00 Resp 18 11/08/18 06:00 BP 107/69 11/08/18 06:00 Pulse Ox 99 11/07/18 10:23 - Labs Result Diagrams: 11/08/18 06:20 11/08/18 06:20 Labs: Laboratory Results - last 24 hr 11/06/18 11/06/18 11/06/18 14:30 18:00 20:00 WBC RBC Hgb Hct MCV MCH MCHC RDW Plt Count MPV Neut % (Auto) Lymph % (Auto) [place] % (Auto) Eos % (Auto) Baso % (Auto) Lymph # (Auto) [place] # (Auto) Eos # (Auto) Baso # (Auto) Absolute Neuts (auto) Erythropoietin 12.3 Ferritin 65.5 Vitamin B12 492 Folate 6.3 Stool Occult Blood IgA Hepatitis A IgM Ab Hep Bs Antigen Hep B Core IgM Ab Hepatitis C Antibody HIV 1&2 Antibody Screen Negative 11/07/18 11/07/18 11/07/18 05:00 05:40 12:50 WBC 3.8 L RBC 3.95 Hgb 10.5 L Hct 34.1 L MCV 86.3 MCH 26.6 MCHC 30.8 L RDW 13.7 Plt Count 159 MPV 9.4 Neut % (Auto) Lymph % (Auto) [place] % (Auto) Eos % (Auto) Baso % (Auto) Lymph # (Auto) [place] # (Auto) Eos # (Auto) Baso # (Auto) Absolute Neuts (auto) Erythropoietin Ferritin Vitamin B12 Folate Stool Occult Blood IgA 127 Hepatitis A IgM Ab Negative Hep Bs Antigen Negative Hep B Core IgM Ab Negative Hepatitis C Antibody Negative HIV 1&2 Antibody Screen 11/07/18 11/07/18 11/08/18 19:45 20:02 06:20 WBC 4.8 D 5.7 RBC 4.18 4.02 Hgb 11.1 L 10.5 L Hct 35.8 L 34.4 L MCV 85.6 85.6 MCH 26.6 26.1 MCHC 31.0 30.5 L RDW 13.7 13.4 Plt Count 182 189 MPV 10.1 10.5 Neut % (Auto) 52.8 Lymph % (Auto) 34.3 [place] % (Auto) 7.7 H Eos % (Auto) 4.9 Baso % (Auto) 0.3 Lymph # (Auto) 2.0 [place] # (Auto) 0.4 Eos # (Auto) 0.3 Baso # (Auto) 0.02 Absolute Neuts (auto) 3.03 Erythropoietin Ferritin Vitamin B12 Folate Stool Occult Blood Negative IgA Hepatitis A IgM Ab Hep Bs Antigen Hep B Core IgM Ab Hepatitis C Antibody HIV 1&2 Antibody Screen Assessment & Plan - Assessment and Plan (Free Text) Assessment: Mr. Moe is a 28 M with G6PD deficiency who was admitted for evaluation and treatment of vomiting blood and blood in stool. Surgery was consulted for possibility of acalculous cholecystitis found on abdominal U/S. EGD showed nonerosive esophagitis, medium sized hiatal hernia. Plan: - Abd U/S shows GB wall thickening, trace pericholecystic fluid, and RUQ fluid - F/U EGD biopsy path results - Altered GI diet, low fiber per GI - IVF - Protonix IV - Hgb stable. Continue to Monitor H/H - FOBT negative - Further management per GI and medical team Further recs per Dr. Jaydon Goyal, PGY-1
[2018-11-08 07:54] LABS: ALB/GLOB RATIO 1.3 (1.1-1.8); ALBUMIN 3.6 g/dL (3.0-4.8); ALT/SGPT 16 U/L (7-56); AST/SGOT 22 U/L (17-59); BILIRUBIN,DIRECT 0.1 mg/dL (0.0-0.4); BLOOD UREA NITROGEN 8 mg/dL (7-21); CALCIUM 8.6 mg/dL (8.4-10.5); GFR NON-AFRICAN AMERICAN > 60
[2018-11-08] MEDS: Sodium Chloride 0.9% 1,000 ML IV SCH (10:17)
--- NOTE | 2018-11-08 11:02 | US ---
Date of service: 11/07/2018 HISTORY: GI bleed COMPARISON: November 07, 2018. CT abdomen and pelvis TECHNIQUE: Sonographic evaluation of the abdomen. FINDINGS: LIVER: Measures 12.8 cm. Patent portal vein. Portal venous flow: Hepatopetal. Unremarkable echogenicity of the liver parenchyma. No mass. No intrahepatic bile duct dilatation. GALLBLADDER: The gallbladder is collapsed. Gallbladder wall is thickened COMMON BILE DUCT: Measures 3.4 mm. No stones. No dilatation. PANCREAS: Unremarkable as visualized. No mass. No ductal dilatation. RIGHT KIDNEY: Measures 4.4 x 11cm. Normal echogenicity. No calculus, mass, or hydronephrosis. LEFT KIDNEY: Measures 6.6 x 10.2cm. Normal echogenicity. No calculus, mass, or hydronephrosis. SPLEEN: Normal in size and contour. No mass. AORTA: No aneurysmal dilatation. IVC: Unremarkable. OTHER FINDINGS: Trace perihepatic ascites. IMPRESSION: Gallbladder wall thickening, trace pericholecystic and right upper quadrant fluid. No visible gallstones, sludge, sonographic Jaramillo's sign. Concordant findings (preliminary report) provided by [facility].
--- NOTE | 2018-11-08 11:16 | CP.PCM.PN ---
Subjective - Date & Time of Evaluation Date of Evaluation: 11/08/18 Time of Evaluation: 09:30 - Subjective Subjective: [facility] Resident- Progress Note on Behalf of Dr. Barrera's Service Subjective Patient seen and examined at bedside. No acute events overnight. Denies nausea, vomiting, bright red blood in the stools, and dark stools. Admits to epigastric discomfort. Denies fever, chills, dizziness, headache, chest pain, SOB, diarrhea, constipation, and urinary symptoms. 12 point ROS negative except as indicated in HPI Physical Examination: - Constitutional Appears: Non-toxic, No Acute Distress - Head Exam Head Exam: ATRAUMATIC, NORMAL INSPECTION, NORMOCEPHALIC - Eye Exam Eye Exam: EOMI - ENT Exam ENT Exam: Mucous Membranes Moist - Neck Exam Neck exam: Positive for: Full Rom, Normal Inspection - Respiratory Exam Respiratory Exam: NORMAL BREATHING PATTERN. absent: Accessory Muscle Use, Chest Wall Tenderness, Rales, Rhonchi, Wheezes - Cardiovascular Exam Cardiovascular Exam: REGULAR RHYTHM, RRR, +S1, +S2. absent: Bradycardia, Tachycardia, Irregular Rhythm, JVD, +S4 - GI/Abdominal Exam GI & Abdominal Exam: Normal Bowel Sounds, Soft. absent: Tenderness - Extremities Exam Extremities exam: Negative for: joint swelling, pedal edema, tenderness - Neurological Exam Neurological exam: Awake, alert, Oriented x3, responds to verbal stimuli, follows commands, and moves extremities past midline CN II-XII Intact - Psychiatric Exam Psychiatric exam: Normal Affect, Normal Mood - Skin Skin Exam: Dry, Intact, Normal Color, Warm Assessment and Plan: Patient is a 28 year old male with a past medical history of G6PD deficiency who was admitted for evaluation and treatment of vomiting blood and blood in stool. GI Hemorrhage - 11/07/2018 CT Abdomen/Pelvis IV Contrast- There is a small amount of pericholecystic fluid. There are no obvious stones. - 11/07/2018 Abdominal Ultrasound- Gallbladder wall thickening, trace pericholecystic and right upper quadrant fluid - continue GI altered hepatic diet - Protonix 40mg PO daily - IVF NS @ 100cc/hr - Type and cross 2 units on hold - GI consulted (Dr. Yagn)- 11/07/2018 Upper Endoscopy- non-erosive esophagitis, medium sized hiatal hernia, await further recommendations Normocytic Anemia - likely secondary to hemorrhage - iron, TIBC, ferritin within normal limits - vitamin B12, folate within normal limits - monitor closely via CBC G6PD Deficiency - avoid sulfa drugs, yoselin beans, and other triggering factors Leukopenia - HIV negative (hep panel negative) Tobacco Abuse - patient counseled on dangers of tobacco use - smoking cessation advised Prophylaxis - DVT ppx- SCDs - GI ppx- Protonix 40mg PO daily Patient case discussed with and plan approved by attending physician, Dr. Barrera. Objective - Vital Signs/Intake and Output Vital Signs (last 24 hours): Temp Pulse Resp BP Pulse Ox 98.2 F 91 H 18 107/69 99 11/08/18 06:00 11/08/18 06:00 11/08/18 06:00 11/08/18 06:00 11/07/18 10:23 Intake and Output: 11/08/18 11/08/18 06:59 18:59 Intake Total 960 Balance 960 - Medications Medications: Current Medications Acetaminophen (Tylenol 325mg Tab) 650 mg PO Q6 PRN PRN Reason: TEMP>=99.5F Acetaminophen (Tylenol 650 Mg Supp) 650 mg RC Q6H PRN PRN Reason: TEMP>=99.5F Sodium Chloride (Sodium Chloride 0.9%) 1,000 mls @ 100 mls/hr IV .Q10H [facility] Last Admin: 11/08/18 10:17 Dose: 100 mls/hr Nicotine (Nicoderm Cq) 1 patch TD 2200 [facility] Last Admin: 11/07/18 22:03 Dose: 1 patch Ondansetron HCl (Zofran Inj) 4 mg IVP Q4 PRN PRN Reason: Nausea/Vomiting Pantoprazole Sodium (Protonix Ec Tab) 40 mg PO 0600 [facility] Last Admin: 11/08/18 06:05 Dose: 40 mg - Labs Labs: 11/08/18 06:20 11/08/18 06:20 PT 12.6 SECONDS (9.4-12.5) H 11/06/18 18:54 INR 1.14 11/06/18 18:54
[2018-11-08 12:23] VITALS: BP 102/66; PULSE 65; TEMP 98.1
--- NOTE | 2018-11-09 01:31 | DS ---
FINAL PROGRESS NOTE AND DISCHARGE SUMMARY LOCATION: The patient is seen in 268, bed 1. HISTORY OF PRESENT ILLNESS: The patient is seen lying in the bed. The patient's girlfriend is at the bedside. The patient underwent endoscopy yesterday which he tolerated well. There was no upper or lower GI bleeding noted. The patient denies any abdominal pain. Denies any hemoptysis, hematemesis, or melena. REVIEW OF SYSTEMS: A 14-system review was done, pertinent positive and negative dictated above. PHYSICAL EXAMINATION: VITAL SIGNS: T-max 98.5; heart rate 64, 71, 74; blood pressure 100/63, 112/82; respirations 18; O2 sat 98%. HEENT: Head is normocephalic and atraumatic. Pinkish conjunctivae. Anicteric sclerae. No oropharyngeal lesion. Dry oral mucosa. NECK: No neck rigidity. CHEST: Kyphosis. LUNGS: Shows no audible crackles, rales or wheezing. CARDIOVASCULAR: S1 and S2, regular rhythm. No audible murmur, gallop or wheezing. ABDOMEN: Soft. Positive bowel sounds. Mild periumbilical tenderness noted and mild epigastric tenderness noted. GENITALIA: Male. RECTAL: Examination is deferred. EXTREMITIES: Shows extremity shows no pitting edema, no calf tenderness, no Homans' sign. NEUROLOGIC: The patient is alert, awake, and oriented x3. He is able to move upper and lower extremity without assistance. Gait examination is not tested. Cranial nerves II through XII intact. VASCULAR: Palpable pulses. DIAGNOSTIC DATA: On 11/08/2018; WBC 4.8, hemoglobin/hematocrit 11.1 and 35.8, and platelet 182. CMP; LFTs are negative. Ultrasound of the gallbladder preliminary reading shows pericholecystic edema, gallbladder wall thickening, questionable acute acalculous cholecystitis. EKG shows sinus bradycardia. The patient underwent endoscopy which shows nonerosive esophagitis at esophagogastric junction and hiatal hernia. HOSPITAL COURSE: Patient is seen and evaluated by Gastroenterology and Surgery. The patient was cleared by Gastroenterology and Surgery for discharge. Final abdominal ultrasound report does not show any evidence of acalculous cholecystitis which was read by the [facility] radiologist. FINAL IMPRESSION, PLAN AND DISCHARGE DIAGNOSES: 1. Status post upper gastrointestinal bleeding with hematemesis. 2. Anemia. 3. Transient leukopenia. 4. Relative thrombocytopenia. 5. Questionable acute acalculous cholecystitis with pericholecystic edema and gallbladder wall thickening with negative ultrasound of the abdomen. 6. Asymptomatic sinus bradycardia. 7. Status post esophagogastroduodenoscopy. 8. Nonerosive esophagitis at the esophagogastric junction. 9. Hiatal hernia. 10. History of [id number] dehydrogenase deficiency. 11. History of nicotine dependence. 1. Upper gastrointestinal bleeding with hematemesis. 2. Questionable lower gastrointestinal bleeding. 3. Leukopenia. 4. Anemia. 5. Pericholecystic fluid, etiology undetermined. 6. Questionable antritis with thickened duodenum and jejunal lining and mucosal thickening. 7. History of G6PD deficiency. 8. Questionable transient hypotension. Plan at this time, the patient will be cleared for discharge since the patient is seen by Gastroenterology and Surgery. The patient is being cleared for discharge. DISCHARGE RECOMMENDATION: 1. Discharge follow up with Dr. Barrera. 2. Discharge follow up with Gastroenterology. 3. Discharge restrictions; no alcohol, no smoking. DISCHARGE MEDICATIONS: Protonix 40 mg twice a day, nicotine patch daily. DISCHARGE INSTRUCTIONS: The patient was advised avoidance of nonsteroidal anti-inflammatory medication, for example Naprosyn, Motrin, ibuprofen, Advil, etc. The patient was advised follow up with Dr. Barrera within 1 week. The patient was explained about the details of his test results, recommendation by all physician involved in the care of the patient was explained to the patient and the patient's girlfriend who is present at the bedside. All questions and concern answered to the patient's satisfaction. Time spent in the discharge process 45 minutes. Dictated and electronically signed, not read. Emre Barrera MD [facility]
== END 2018-11-08 17:24 | disposition home or self-care (01) | DRG 378 ==
LOC: ED 13:08 → ERH 17:06 → 2RNO 20:55
PROVIDERS: ADMIT Internal Medicine; ATTEND Internal Medicine
PROC: 0DB68ZX Excision of Stomach, Via Natural or Artificial Opening Endoscopic, Diagnostic (ICD-10-PCS; 2018-11-07)
PROC: 0DB48ZX Excision of Esophagogastric Junction, Via Natural or Artificial Opening Endoscopic, Diagnostic (ICD-10-PCS; principal; 2018-11-07 09:00)
DX: K92.0 Hematemesis (principal); E74.01 von Gierke disease; K81.0 Acute cholecystitis; K20.9 Esophagitis, unspecified; K44.9 Diaphragmatic hernia without obstruction or gangrene; K29.50 Unspecified chronic gastritis without bleeding; B96.81 Helicobacter pylori [H. pylori] as the cause of diseases classified elsewhere; D64.9 Anemia, unspecified; F17.210 Nicotine dependence, cigarettes, uncomplicated; R00.1 Bradycardia, unspecified; D72.819 Decreased white blood cell count, unspecified; D69.6 Thrombocytopenia, unspecified; Z88.2 Allergy status to sulfonamides; Z88.0 Allergy status to penicillin; Z82.49 Family history of ischemic heart disease and other diseases of the circulatory system; Z83.3 Family history of diabetes mellitus

== ENCOUNTER 2018-11-28 23:47 | Emergency (ER) | payer OTHER ==
[2018-11-29 00:18] VITALS: BMI 17.5
[2018-11-29 00:31] VITALS: TEMP 98.4; O2SAT 100
[2018-11-29] MEDS ORDERED: Sodium Chloride 0.9% 1,000 ML IV STA (00:55)
--- NOTE | 2018-11-29 01:04 | ED PDOC ---
Arrival/HPI - General Chief Complaint: Abdominal Pain Time Seen by Provider: 11/29/18 00:14 Historian: Patient - History of Present Illness Narrative History of Present Illness (Text): 11/29/18 00:59 28 year old male, whose past medical history includes gastritis and H-pylori, presents to the emergency department complaining of occassional diarrhea for the past week associated with abdominal cramps. Patient has been taking prilosec, pepto bismol and 2 antibiotic medications which names he does not recall. Patient denies any fever, chills, chest pain, shortness of breath, nausea, vomiting, urinary symptoms, back pain, neck pain, headache, dizziness, or any other complaints. Time/Duration: 1 week Symptom Onset: Gradual Symptom Course: Unchanged Activities at Onset: Light Context: Home Past Medical History - Provider Review Nursing Documentation Reviewed: Yes - Travel History If Yes, travel location?: [place] - Infectious Disease Hx of Infectious Diseases: None - Cardiac Hx Cardiac Disorders: No - Pulmonary Hx Respiratory Disorders: No - Neurological Hx Neurological Disorder: No - HEENT Hx HEENT Disorder: No (glasses) - Renal Hx Renal Disorder: No - Endocrine/Metabolic Hx Endocrine Disorders: No - Hematological/Oncological Hx Blood Transfusions: No - Integumentary Hx Dermatological Disorder: No - Musculoskeletal/Rheumatological Hx Falls: No - Gastrointestinal Hx Gastrointestinal Disorders: Yes (hemetemesis, vomiting, gastritis) - Genitourinary/Gynecological Hx Genitourinary Disorders: No - Psychiatric Hx Psychophysiologic Disorder: No Hx Substance Use: No - Anesthesia Hx Anesthesia Reactions: No Hx Malignant Hyperthermia: No Family/Social History - Physician Review Nursing Documentation Reviewed: Yes Family/Social History: No Known Family HX Smoking Status: Light Smoker < 10 Cigarettes Daily Hx Alcohol Use: No Hx Substance Use: No Allergies/Home Meds Allergies/Adverse Reactions: Allergies peanut Allergy (Verified 11/29/18 00:18) ANAPHYLAXIS Penicillins Allergy (Verified 11/29/18 00:18) RASH Sulfa (Sulfonamide Antibiotics) Allergy (Verified 11/29/18 00:18) ANAPHYLAXIS Review of Systems - Physician Review All systems were reviewed & negative as marked: Yes - Review of Systems Constitutional: absent: Fevers, Other (chills) Respiratory: absent: SOB Cardiovascular: absent: Chest Pain Gastrointestinal: Abdominal Pain, Diarrhea. absent: Nausea, Vomiting Genitourinary Male: absent: Dysuria, Frequency, Hematuria Musculoskeletal: absent: Back Pain, Neck Pain Neurological: absent: Headache, Dizziness Physical Exam Vital Signs Reviewed: Yes Vital Signs Temp Pulse Resp BP Pulse Ox 11/29/18 00:58 74 18 110/90 100 11/29/18 00:25 98.4 F 75 18 100 Temperature: Afebrile Blood Pressure: Normal Pulse: Regular Respiratory Rate: Normal Appearance: Positive for: Well-Appearing, Non-Toxic, Comfortable Pain Distress: None Mental Status: Positive for: Alert and Oriented X 3 - Systems Exam Head: Present: Atraumatic, Normocephalic Pupils: Present: PERRL Extroacular Muscles: Present: EOMI Conjunctiva: Present: Normal Mouth: Present: Moist Mucous Membranes Neck: Present: Normal Range of Motion Respiratory/Chest: Present: Clear to Auscultation, Good Air Exchange. No: Respiratory Distress, Accessory Muscle Use Cardiovascular: Present: Regular Rate and Rhythm, Normal S1, S2. No: Murmurs Abdomen: No: Tenderness, Distention, Peritoneal Signs Back: Present: Normal Inspection Upper Extremity: Present: Normal Inspection. No: Cyanosis, Edema Lower Extremity: Present: Normal Inspection. No: Edema Neurological: Present: GCS=15, CN II-XII Intact, Speech Normal Skin: Present: Warm, Dry, Normal Color. No: Rashes Psychiatric: Present: Alert, Oriented x 3, Normal Insight, Normal Concentration Medical Decision Making ED Course and Treatment: 11/29/18 01:04 Impression: 28 year old male presents complaining of diarrhea for the past 1 week associated with abdominal cramps. Plan: -- Labs -- Pepcid, Protonix Inj, IV Fluids -- Reassess and disposition Prior Visits: Notes and results from previous visits were reviewed. Progress Notes: 11/29/18 04:29 On re-evaluation, patient is in no acute distress. I have discussed th plan with the patient, who expresses understanding. Patient in agreement with plan to be discharged home. Patient is stable for discharge. Patient was instructed to follow up with physician or return if symptoms worsen or new concerning symptoms arise. - Lab Interpretations I have reviewed the lab results: Yes - Medication Orders Current Medication Orders: Sodium Chloride (Sodium Chloride 0.9%) 1,000 mls @ 999 mls/hr IV .Q1H1M STA Stop: 11/29/18 01:55 Discontinued Medications Famotidine (Pepcid) 20 mg IVP STAT STA Stop: 11/29/18 00:56 Pantoprazole Sodium (Protonix Inj) 40 mg IVP ONCE STA Stop: 11/29/18 00:56 - Scribe Statement The provider has reviewed the documentation as recorded by the Dc Pardo Provider Scribe Attestation: All medical record entries made by the Scribe were at my direction and personally dictated by me. I have reviewed the chart and agree that the record accurately reflects my personal performance of the history, physical exam, medical decision making, and the department course for this patient. I have also personally directed, reviewed, and agree with the discharge instructions and disposition. Disposition/Present on Arrival - Present on Arrival Any Indicators Present on Arrival: No History of DVT/PE: No History of Uncontrolled Diabetes: No Urinary Catheter: No History of Decub. Ulcer: No History Surgical Site Infection Following: None - Disposition Have Diagnosis and Disposition been Completed?: Yes Diagnosis: Gastroenteritis Disposition: HOME/ ROUTINE Disposition Time: 04:26 Patient Plan: Discharge Patient Problems: Current Active Problems Problem Status Onset Gastroenteritis Acute Condition: GOOD Discharge Instructions (ExitCare): Gastroenteritis (ED) Additional Instructions: Drink plenty of liquids/take meds as prescribed/follow up with your doctor this week Prescriptions: Dicyclomine [Dicyclomine HCl] 10 mg PO QID PRN #15 cap PRN Reason: abdominal cramps Referrals: Emre Barrera MD [Primary Care Provider] - Follow up with primary Forms: [facility] (Green[place]ic), SCHOOL NOTE, WORK NOTE
[2018-11-29 01:16] LABS: HEMOGLOBIN 12.3 g/dL (14.0-18.0); MEAN CELL VOLUME 86.2 fl (80.0-105.0); MEAN CORPUSCULAR HGB CONC 31.4 g/dl (31.0-37.0); MEAN PLATELET VOLUME 10.1 fl (7.0-11.0); RBC 4.55 10^6/uL (3.5-6.1); RED CELL DISTRIBUTION WIDTH 14.1 % (11.5-14.5); WHITE BLOOD COUNT 6.5 10^3/uL (4.5-11.0)
[2018-11-29 01:48] LABS: ALB/GLOB RATIO 1.2 (1.1-1.8); ALBUMIN 4.4 g/dL (3.0-4.8); ALT/SGPT 20 U/L (7-56); AST/SGOT 39 U/L (17-59); BLOOD UREA NITROGEN 12 mg/dL (7-21); CALCIUM 9.7 mg/dL (8.4-10.5); GFR NON-AFRICAN AMERICAN > 60; LIPASE 70 U/L (23-300)
[2018-11-29 05:17] VITALS: BP 115/62; PULSE 75; RESP 16
== END 2018-11-29 04:30 | disposition home or self-care (01) ==
LOC: ED 23:47
DX: K52.9 Noninfective gastroenteritis and colitis, unspecified (principal)
CPT/HCPCS: 80053; 83690; 85027; 96374; 96375; 99283; C9113; J7030